=== PATIENT | female | born 1990 | race Caucasian/White ===

== ENCOUNTER 2020-06-02 22:21 | Emergency (ER) | payer OTHER ==
[~2020-06-02] VITALS: Ht 175.3 cm; Wt 149.7 kg
[~2020-06-02 22:21] MED LIST: A-B OTIC EAR DR15 ML OT; ACTICIN 5% CREA60 G1 TOP; AMOXICILLIN500 M1 PO; BACTRIM DS TAB1 EACH PO; BENADRYL ALLERG25 MG PO; Birth Control PO; CIPRO500 MG PO; DILAUDID 2 MG TA2 MG PO; DOXYCYCLINE 10100 MG PO; EURAX60 GM TOP; FLEXERIL PO; HYDROCODON-ACE1 EAC7 PO; IBUPROFEN 600600 M1 PO; MEDROL DOSPAK21 TAB PO; MIRALAX17 GM PO; NAPROSYN500 MG PO; NOHOMEMEDICATIONS; NORCO 5-325 TA1 EAC1 PO; NORCO 5-325 TA1 EACH PO; ONDANSETRON HCL4 M2 PO; PENICILLIN V P500 MG PO; PENICILLIN VK250 MG PO; PHENERGAN 25 MG25 M1 PO; PREDNISONE 5 MG5 M1 PO; PRENATAL; PROAIR HFA8.5 GM INH; SINGULAIR 10 MG10 MG PO; TRAMADOL 50 MG50 MG PO; TRIAMCINOLONE A15 G1 TP; VICODIN 5-5001 EACH PO; ZOFRAN ODT4 MG PO; ZOFRAN ODT8 MG PO; ZPAK PO
[2020-06-02] MEDS ORDERED: IBUPROFEN 600600 M1 PO (23:33)
[2020-06-02 23:43] VITALS: BP 100/50
== END 2020-06-02 23:43 | disposition home or self-care (01) ==
LOC: ER 22:21
DX: M25.561 Pain in right knee (principal); J45.909 Unspecified asthma, uncomplicated; F17.210 Nicotine dependence, cigarettes, uncomplicated; Z79.899 Other long term (current) drug therapy; Z88.5 Allergy status to narcotic agent

== ENCOUNTER 2020-12-18 00:24 | Emergency (ER) | payer OTHER ==
[~2020-12-18] VITALS: Ht 175.3 cm; Wt 140.6 kg
[~2020-12-18 00:24] MED LIST changes: +CRUTCHES MISCELL; +ZANAFLEX4 MG PO
[2020-12-18] MEDS ORDERED: DOXYCYCLINE 10100 MG PO (01:55)
[2020-12-18] MEDS ORDERED: PREDNISONE 20 M20 MG PO (01:56)
[2020-12-18] MEDS ORDERED: PROAIR HFA8.5 GM INH (01:56)
[2020-12-18 02:38] VITALS: BP 107/69
== END 2020-12-18 02:39 | disposition home or self-care (01) ==
LOC: ER 00:24
DX: J20.9 Acute bronchitis, unspecified (principal); A48.8 Other specified bacterial diseases; F17.210 Nicotine dependence, cigarettes, uncomplicated; E66.01 Morbid (severe) obesity due to excess calories; Z88.5 Allergy status to narcotic agent; Z87.442 Personal history of urinary calculi